=== PATIENT | female | born 1970 | race Caucasian/White ===

== ENCOUNTER 2016-12-20 03:27 | Emergency (ER) | payer MEDICAID, OTHER ==
[~2016-12-20] VITALS: Ht 154.9 cm; Wt 75.5 kg
[2016-12-20 03:33] VITALS: Ht 154.9 cm; Wt 75.5 kg
[2016-12-20] MEDS ORDERED: DIPHTH/TET/ACEL PERTUSS (ADULT) 0.5 ML VIAL IM* ONE (06:30)
--- NOTE | 2016-12-20 07:17 | ERD ---
ER Documentation Chief Complaint Date/Time DATE: 12/20/16 TIME: 07:12 Chief Complaint left ring finger laceration HPI This is a 46-year-old female presents to the ER with a left fourth digit laceration that occurred yesterday at work while she was cooking. Patient cut herself with a knife. Patient states that now she has throbbing pain to the distal portion of her left fourth digit. She denies any numbness or tingling of the digit. She denies any discharge from the laceration. Patient denies any fevers or chills. Patient does not have a recent Tdap shot. ROS 12 point review of systems was done, all negative except per HPI. Allergies Allergies: Coded Allergies: No Known Allergy (Unverified , 12/20/16) PMhx/Soc Medical and Surgical Hx: pt denies Medical Hx, pt denies Surgical Hx Hx Alcohol Use: No Hx Substance Use: No Hx Tobacco Use: No Smoking Status: Never smoker Physical Exam Vitals Vital Signs Date Time Temp Pulse Resp B/P Pulse Ox O2 Delivery O2 Flow Rate FiO2 12/20/16 03:33 97.8 72 20 141/69 97 Physical Exam GENERAL: The patient is well developed and appropriate for usual state of health , in no apparent distress. HEENT: Atraumatic. CHEST: Clear to auscultation bilaterally. There are no rales, wheezes or rhonchi. HEART: Regular rate and rhythm. No murmurs, clicks, rubs or gallops.a. Full range of motion. Grossly neurovascularly intact. NEURO: Alert and oriented. EXTREMITIES: left hand: Patient has full ROM and normal strength to all digits. Patient has full ROM of PIP and DIP of the 4th digit. DTS and DTP are intact. SKIN: There is a 1 cm C-shaped laceration to the distal left fourth digit. Results 24 hrs Current Medications Medications (Trade) Dose Ordered Sig/[place]ol[place] Route PRN Reason Start Time Stop Time Status Last Admin Dose Admin Diphtheria/ Tetanus/Acell Pertussis (Adacel) 0.5 ml ONCE ONCE IM* 12/20/16 06:30 12/20/16 06:31 DC 12/20/16 06:38 Procedures/MDM This is a 46-year-old female presents to the ER for a laceration. Laceration was very superficial. Laceration was irrigated with copious amounts of normal saline. It was successfully Dermabond it with no complications by myself. Patient was neurovascularly intact before and after procedure. Area was then dressed with bacitracin and dry dressing. Patient is afebrile and well- appearing. I do not suspect infection. Patient needs to follow-up with her primary care doctor within 1-2 days or return to ER sooner if symptoms worsen. My medical decision making was shared with the patient she understands and agrees with plan. Departure Diagnosis: Primary Impression: Laceration Condition: Stable Patient Instructions: Laceration, All Referrals: [facility] (PCP) Additional Instructions: Llame al doctor MAANA y umer aleksandar THOMAS PARA DENTRO DE 1-2 PONCE.Dgale a la secretaria que nosotros le instruimos hacer esta thomas.Avise o llame si jiang condicin se empeora antes de la thomas. Regresa aqui si peor o no mejor. CHANI HOLCOMB Dec 20, 2016 07:17
== END 2016-12-20 07:35 | disposition home or self-care (01) ==
LOC: FTE 03:27
DX: S61.215A Laceration without foreign body of left ring finger without damage to nail, initial encounter (principal); W26.0XXA Contact with knife, initial encounter; Y92.89 Other specified places as the place of occurrence of the external cause; Z23 Encounter for immunization
CPT/HCPCS: 12001; 90471; 90715; Z7502

== ENCOUNTER 2016-12-23 11:16 | Emergency (ER) | payer MEDICAID ==
[~2016-12-23] VITALS: Ht 149.9 cm; Wt 73.5 kg
[2016-12-23 11:21] VITALS: Ht 149.9 cm; Wt 73.5 kg
[2016-12-23] MEDS ORDERED: LIDOCAINE 1% (MDV) 20 ML INJ SC STA (12:50)
[2016-12-23] MEDS ORDERED: DIPHTH/TET/ACEL PERTUSS (ADULT) 0.5 ML VIAL IM* ONE (13:00)
[2016-12-23] MEDS ORDERED: BACTDS PO (13:45)
[2016-12-23] MEDS ORDERED: CEPH-443 PO (13:45)
[2016-12-23] MEDS ORDERED: ACET325T33 PO (13:50)
--- NOTE | 2016-12-23 14:02 | ERD ---
ER Documentation Chief Complaint Date/Time DATE: 12/23/16 TIME: 13:59 Chief Complaint 3 days of L big toe pain HPI This is a 46-year-old female presenting to the emergency department with history of numerous ingrown toenails presenting to the emergency department complaining of an ingrown toenail for the past 3 days. Patient said that she went to get a pedicure the pain started hurting as tried to remove the ingrown toenail herself. Patient rates the pain 10 out of 10. She denies any fevers. Denies any trauma ROS All systems reviewed and are negative except as per history of present illness. Medications Home Meds Active Scripts Acetaminophen* (Tylenol*) 325 Mg Tablet, 2 TAB PO Q6 Y for PAIN AND OR ELEVATED TEMP, #20 TAB Prov:OLENA SHIELDS PA-C 12/23/16 Sulfamethoxazole-Trimethoprim* (Bactrim* DS) 800-160 Mg Tab, 1 TAB PO BID for 5 Days, TAB Prov:OLENA SHIELDS PA-C 12/23/16 Cephalexin* (Keflex*) 500 Mg Capsule, 500 MG PO QID for 7 Days, CAP Prov:OLENA SHIELDS PA-C 12/23/16 Allergies Allergies: Coded Allergies: No Known Allergy (Unverified , 12/20/16) PMhx/Soc History of Surgery: Yes (BILATERAL EYE SX) Anesthesia Reaction: No Hx Neurological Disorder: No Hx Respiratory Disorders: No Hx Cardiac Disorders: No Hx Psychiatric Problems: No Hx Miscellaneous Medical Probl: Yes (HYPOTHYROID) Hx Alcohol Use: No Hx Substance Use: No Hx Tobacco Use: No Smoking Status: Never smoker Physical Exam Vitals Vital Signs Date Time Temp Pulse Resp B/P Pulse Ox O2 Delivery O2 Flow Rate FiO2 12/23/16 11:21 98.2 68 18 100/59 97 Physical Exam Const: Well-developed well-nourished no acute distress Head: Atraumatic Eyes: Normal Conjunctiva ENT: Normal External Ears, Nose and Mouth. Neck: Full range of motion..~ No meningismus. Resp: Clear to auscultation bilaterally Cardio: Regular rate and rhythm, no murmurs Abd: Soft, non tender, non distended. Normal bowel sounds Skin: No petechiae or rashes Back: No midline or flank tenderness Ext: Ingrown toenail left medial border of first toe, mild surrounding erythema Neur: Awake and alert Psych: Normal Mood and Affect Results 24 hrs Current Medications Medications (Trade) Dose Ordered Sig/Kolton Route PRN Reason Start Time Stop Time Status Last Admin Dose Admin Lidocaine (Xylocaine 1% (Mdv) 20 ml) 20 ml ONCE STAT SC 12/23/16 12:50 12/23/16 12:51 DC Diphtheria/ Tetanus/Acell Pertussis (Adacel) 0.5 ml ONCE ONCE IM* 12/23/16 13:00 12/23/16 13:00 DC Procedures/MDM 46-year-old female patient presents to the ED with an ingrown toe nail, nail avulsion procedure was done to relieve patient's pain. Low suspicion for fracture, clubbing, or significant paronychia. Patient did have some surrounding erythema with an ingrown toenail and she will be empirically treated for infection with keflex and bactrim PROCEDURE NOTE: consent was obtained. Region was cleansed with povidone-iodine solution. A standard digital block was preformed using approximately 8cc of lidocaine without epinephrine. A wait for 10 minutes was allowed for anesthetic to become effective. The region was cleansed again with povidone-iodine solution. A nail elevator was slid under the cuticle to separate the nail plate from the overlying proximal nail fold. The medial 20-30% of the nail plate was cut free using bandage scissors and gently pulled free with a hemostat. Xeroform guaze was then applied followed by bulky dry gauze dressing. The patient tolerated the procedure well without complications. Standard post- procedure care is explained and return precautions are given. DISPOSITION: hemodynamically stable and neurovascularly intact pre & post treatment. Prescriptions have been given. Instructions to return in two days for a wound check has been given, discussed to return sooner if condition worsens. Patient understood and agreed with this plan Departure Diagnosis: Primary Impression: Ingrowing toenail with infection Condition: Stable Patient Instructions: Understanding Ingrown Toenails, Ingrown Toenail, Excised , Ingrown Toenail, Infected (Abx Only) Additional Instructions: Visite a jiang gerson disla para un EXAMEN.Regrese a estas instalaciones si no se mejora naomi esperbamos o naomi le dijimos. [place] toda la medicina darío y naomi se le indic. Regrese a estas instalaciones si no se mejora naomi esperbamos o naomi le dijimos. OLENA SHIELDS PA-C Dec 23, 2016 14:02
[2016-12-23 14:27] VITALS: BP 110/69; PULSE 87; RESP 18
== END 2016-12-23 14:27 | disposition left against medical advice (07) ==
LOC: FTE 11:16
DX: Z53.21 Procedure and treatment not carried out due to patient leaving prior to being seen by health care provider (principal)

== ENCOUNTER 2018-05-21 06:56 | Emergency (ER) | END 2018-05-21 08:37 | disposition home or self-care (01) ==

== ENCOUNTER 2018-12-03 08:21 | Emergency (ER) | payer MEDICAID ==
[~2018-12-03] VITALS: Ht 152.4 cm; Wt 74.0 kg
[~2018-12-03 08:21] MED LIST: ACET325T33 PO; BACTDS PO; CEPH-443 PO; GUAI-637 PO; IBUP-1542 PO; SODI126M NASAL
[2018-12-03 08:24] VITALS: BP 132/61; PULSE 90; RESP 18; Ht 152.4 cm; Wt 74.0 kg
--- NOTE | 2018-12-03 08:39 | ERD ---
ER Documentation Chief Complaint Chief Complaint pt is bib self with c/o cough for 3 days HPI 48-year-old female, presents to the emergency department, complaining of cough for 3 days, productive, constant, associated with subjective fever and general malaise. Otherwise, no chest pain, no shortness of breath, no leg edema. The patient has been taking [id number] medication without improvement of the symptoms. ROS All systems reviewed and are negative except as per history of present illness. Medications Home Meds Active Scripts Ibuprofen* (Motrin*) 400 Mg Tab, 400 MG PO Q8, #20 TAB Prov:JOSE LUIS MCCRAY MD 12/03/18 Guaifenesin-Codeine Phosphate* (Guaifenesin* AC Cough Syrup) 473 Ml Liquid, 5 ML PO QHS PRN for COUGH, #60 ML Prov:JOSE LUIS MCCRAY MD 12/03/18 Amoxicillin* (Amoxicillin*) 500 Mg Cap, 500 MG PO TID for 7 Days, CAP Prov:JOSE LUIS MCCRAY MD 12/03/18 Ibuprofen* (Motrin*) 600 Mg Tab, 600 MG PO Q6H PRN for PAIN AND OR ELEVATED TEMP, #30 TAB Prov:EWELINA HAMMER [employer] SERVICEMAN 05/21/18 Guaifenesin* (Robitussin*) 100 Mg/5 Ml Syrup, 200 MG PO Q6H PRN for COUGH, #120 ML Prov:EWELINA HAMMER. FORREST 05/21/18 Sodium Chloride (Saline Nasal Mist) 126 Ml Mist, 2 SPRAY NASAL Q2H PRN for NASAL CONGESTION, #1 BOTTLE Prov:EWELINA HAMMER [employer] SERVICEMAN 05/21/18 Acetaminophen* (Tylenol*) 325 Mg Tablet, 2 TAB PO Q6 PRN for PAIN AND OR ELEVATED TEMP, #20 TAB Prov:OLENA SHIELDS-C 12/23/16 Sulfamethoxazole-Trimethoprim* (Bactrim* DS) 800-160 Mg Tab, 1 TAB PO BID for 5 Days, TAB Prov:OLENA SHIELDS-C 12/23/16 Cephalexin* (Keflex*) 500 Mg Capsule, 500 MG PO QID for 7 Days, CAP Prov:OLENA SHIELDS-C 12/23/16 Allergies Allergies: Coded Allergies: No Known Allergy (Unverified , 12/20/16) PMhx/Soc History of Surgery: No Anesthesia Reaction: No Hx Neurological Disorder: No Hx Respiratory Disorders: No Hx Cardiac Disorders: No Hx Psychiatric Problems: No Hx Miscellaneous Medical Probl: No Hx Alcohol Use: No Hx Substance Use: No Hx Tobacco Use: No FmHx Family History: diabetes; No coronary disease Physical Exam Vitals Vital Signs Date Temp Pulse Resp B/P (MAP) Pulse Ox O2 O2 Flow FiO2 Time Delivery Rate 12/03/18 98.8 90 18 132/61 100 08:24 (84) Physical Exam Const: Vital signs stable, no acute distress Head: Atraumatic Eyes: Normal Conjunctiva ENT: Normal External Ears, Nose and Mouth. Neck: Full range of motion. No meningismus. Resp: Productive cough with rhonchi to auscultation bilaterally Cardio: Regular rate and rhythm, no murmurs Abd: Soft, non tender, non distended. Normal bowel sounds Skin: No petechiae or rashes Back: No midline or flank tenderness Ext: No cyanosis, or edema Neur: Awake and alert Psych: Normal Mood and Affect Procedures/MDM Vital signs stable, no respiratory distress. Differential diagnosis include but not limited to: Respiratory infection bacterial/viral/fungal. Influenza, croup, bronchiolitis, pneumonitis, allergies, GERD. Less likely foreign body aspiration, cardiac related. Physical examination and clinical presentation consistent most likely with viral infection with early superimposed bacterial infection. During the ED course the patient remained stable, no new complaints. Treatment options and clinical impression discussed with the patient who agrees with management. The patient is stable to be treated outpatient and will be discharged home. Some side effects of prescribed medications (headache, rash, nausea, vomiting, diarrhea, interactions with other medications) were reviewed. The patient needs to follow up with the primary care provider in the next 48h. If symptoms persist, worsen or new symptoms develop, then patient should return to the ED immediately. Disclaimer: Inadvertent spelling and grammatical errors are likely due to EHR/dictation software use and do not reflect on the overall quality of patient care. Also, please note that the electronic time recorded on this note does not necessarily reflect the actual time of the patient encounter. Departure Diagnosis: Primary Impression: Cough Condition: Stable Additional Instructions: [facility] para jiang servicio. Esperamos que en jiang visita a la daniel de emergencia jiang problema medico haya sido solucionado y que se sienta mucho mejor. Para estar seguros que jiang mejoria sigue en proceso, le pedimos el favor de hacer aleksandar arash de seguimiento medico con jiang doctor primario en los proximos 2-4 elise. Lleve con usted estos documentos y las medicinas recetadas. Si barbie sintomas empeoran, NO SE ESPERE, por favor regrese a daniel de emergencia INMEDIATAMENTE. En michael que usted no tenga un mdico de atencin primaria: Llame al mdico o clnica comunitaria de referencia que aparece abajo bisi las horas de consultorio para hacer aleksandar arash para que le vean. CLINICAS: [facility] [id number] [facility] [phone] [facility] [phone] [facility] [phone] [facility] [phone] [id number] [phone] JOSE LUIS BELTRAN MD Dec 03, 2018 08:39
[2018-12-03] MEDS ORDERED: IBUP-1561 PO (08:51)
[2018-12-03] MEDS ORDERED: AMOX500C2 PO (08:51)
[2018-12-03] MEDS ORDERED: GUAI473L22 PO (08:51)
== END 2018-12-03 09:06 | disposition home or self-care (01) ==
LOC: FTE 08:21
DX: R05 Cough (principal)
CPT/HCPCS: 99283

== ENCOUNTER 2019-06-20 02:25 | Emergency (ER) | payer MEDICAID ==
[~2019-06-20] VITALS: Ht 157.5 cm; Wt 80.0 kg
[~2019-06-20 02:25] MED LIST changes: +AMOX500C2 PO; +FAMO-96 PO; +GUAI473L22 PO; +IBUP-1561 PO
[2019-06-20 02:30] VITALS: Ht 157.5 cm; Wt 80.0 kg
[2019-06-20] MEDS ORDERED: FAMOTIDINE 20 MG TAB PO STA (03:48)
[2019-06-20] MEDS ORDERED: LIDOCAINE/MYLANTA 40 ML BTL PO STA (03:48)
[2019-06-20 04:16] VITALS: BP 151/134; PULSE 63; RESP 22
== END 2019-06-20 04:26 | disposition home or self-care (01) ==
LOC: E/R 02:25
DX: R10.13 Epigastric pain (principal); E03.9 Hypothyroidism, unspecified
CPT/HCPCS: 36415; 71045; 76705; 80053; 81001; 83690; 84484; 85025; 85610; 93005; Z7502; Z7610